=== PATIENT | female | born 1950 | race African-American/Black ===

== ENCOUNTER 2017-10-07 22:13 | Inpatient (IN) | payer OTHER ==
[~2017-10-07] VITALS: Ht 177.8 cm; Wt 120.7 kg
--- NOTE | ~2017-10-07 | EKG ---
[address] [address] ELECTROCARDIOGRAM REPORT Name: KATERYNACLAYTON D Room #: 417-I ADM IN [facility]#: [id number] Admission: 10/08/17 Attend Phys: Sreedhar Orlando MD Discharge: Date of : 54 Report #: [id number] THIS REPORT FOR: //name// [facility] ED Test Date: 2017-10-07 Test Time: 22:27:54 Pat Name: CLAYTON AVENDAÑO Department: Room: Gender: F Environment Artist: VENKAT : 1950 Requested By: David Sosa Order Number: [id number] MD: Quinton Wylie Measurements Intervals [place] Rate: 104 P: 32 [place]: 144 QRS: -14 QRSD: 145 T: -28 QT: 409 QTc: 538 Interpretive Statements Sinus tachycardia Probable left atrial enlargement Right bundle branch block No previous ECG available for comparison Electronically Signed On 10-08-2017 19:49:38 CDT by Quinton Wylie [email or web address] <ELECTRONICALLY SIGNED> By: Quinton Wylie MD 10/08/171948 26 Quinton Wylie MD /AALIYAH
--- NOTE | ~2017-10-07 | HC ---
[facility] [place] [address] CONSULTATION Name: CLAYTON AVENDAÑO Room #: 417-I [facility] IN [facility].#: [id number] Admission: 10/08/17 Attend Phys: Sreedhar Orlando MD Discharge: Date of : 54 Report #: [id number] THIS REPORT FOR: //name// CC: LAIN Orlando DATE OF SERVICE: 10/08/2017 TYPE OF REPORT: General surgery consultation. REFERRING PROVIDER: Sreedhar Orlando M.D. REASON FOR CONSULTATION: Abdominal pain. HISTORY OF PRESENT ILLNESS: The patient is a 67-year-old obese -[place] female visiting from [place] with a known history of a hiatal hernia, who presents with a 5-day history of worsening epigastric and left lower quadrant abdominal pain. The patient has had persistent belching and nausea, but no emesis and does have a past history of a necrotic bowel that required emergent surgical intervention. As such, the patient presented to the Emergency Room for evaluation, whereby she was evaluated with laboratories and a CT scan of the abdomen and pelvis. The patient's labs have returned grossly unremarkable with a normal white blood cell count and normal creatinine and liver function enzymes. Two-view abdominal x-ray shows a nonspecific bowel gas pattern and a CT scan of the abdomen and pelvis shows normal stomach and small bowel with no evidence of inflammatory process, whatsoever. She does have stool and gas throughout the colon, but no evidence of a small-bowel obstruction or ileus. No free fluid. Because of her abdominal pain, however, she has been admitted and I am asked to evaluate from a surgical standpoint. PAST MEDICAL HISTORY: Morbid obesity, prior cholecystectomy. She has hypothyroidism, hypertension and hyperlipidemia. She has undergone appendectomy as well as emergent exploration with a bowel resection for necrotic bowel. She also has a known hiatal hernia. HOME MEDICATIONS: Xanax, Protonix, Synthroid, losartan, hydrochlorothiazide, Lipitor, DuoNeb, nicotine patch and aspirin. ALLERGIES: To IV CONTRAST DYE. FAMILY HISTORY: Reviewed and noncontributory. SOCIAL HISTORY: The patient continues to smoke tobacco, having smoked 5 cigarettes daily until recently; however, she has a history of smoking 1 pack per day for several years. Denies alcohol or illicit drug use. [place] [id number] CONSULTATION Name: CLAYTON AVENDAÑO Room #: 417-I [facility] IN [facility].#: [id number] Admission: 10/08/17 Attend Phys: Sreedhar Orlando MD Discharge: Date of : 54 Report #: [id number] REVIEW OF SYSTEMS: GENERAL: The patient denies nocturnal fevers or chills. HEENT: No change in vision or change in hearing. NECK: No swelling or difficulty swallowing. HEART: No chest pain or palpitations. LUNGS: No cough or shortness of breath. ABDOMEN: Abdominal pain, but no nausea or vomiting. GENITOURINARY: No dysuria or hematuria. ENDOCRINE: No polyuria or polydipsia. HEMATOLOGIC: No history of bleeding or easy bruising. EXTREMITIES: No history weakness or limited range of motion. NEUROLOGICAL: No history of syncope or near-syncopal episodes. SKIN AND INTEGUMENT: No history of abnormal lesions or moles. PSYCHIATRIC: No history of anxiety or depression. PHYSICAL EXAMINATION: VITAL SIGNS: Temperature is 99.1, pulse 85, respirations 22 and blood pressure 142/74. She is 5 feet 10 inches tall and weighs 266 pounds. GENERAL: She is alert, in no acute distress. HEENT: Normocephalic and atraumatic. Pupils equal, round and reactive to light. NECK: Supple, without lymphadenopathy. Trachea midline. HEART: Regular rate and rhythm. LUNGS: Clear to auscultation bilaterally. ABDOMEN: Obese, soft and nondistended. She has mild diffuse tenderness to palpation, although when distracted, does not appear to have abdominal pain to palpation. No guarding, rebound or peritoneal signs or symptoms. GENITOURINARY: Normal external female genitalia. EXTREMITIES: No clubbing, cyanosis or edema. NEUROLOGICAL: Cranial nerves 2 through 12 are grossly intact. PSYCHIATRIC: Normal mood and affect. SKIN AND INTEGUMENT: No abnormal lesions or moles. LABORATORY AND X-RAY DATA: CBC shows white blood cell count of 5.3 thousand; hemoglobin 12.1 and platelets 239,000. Creatinine is 1.0. Liver function enzymes are normal. Chest x-ray is normal. BNP is normal at 189. CT scan of the abdomen and pelvis as well as x-ray of the abdomen showed a nonspecific bowel gas pattern as well as no inflammatory process within the abdomen and no evidence of a small-bowel obstruction or even an ileus. ASSESSMENT AND PLAN: A 67-year-old morbidly obese -M[place]ese female with complaints of diffuse abdominal pain and belching with a known hiatal hernia as well as a history of ischemic bowel requiring emergent exploration for necrotic intestines. At this time, I do not see any overt sinister process ongoing. However, I will obtain a lactic acid level to ensure no ischemic changes are ongoing. I will ask Gastroenterology to evaluate as well for chronic burping [facility] [address] [place] [address] CONSULTATION Name: CLAYTON AVENDAÑO Room #: 417-I [facility] IN ..#: [id number] Admission: 10/08/17 Attend Phys: Sreedhar Orlando MD Discharge: Date of : 54 Report #: [id number] and known hiatal hernia and we will also obtain an upper gastrointestinal swallow with small bowel follow through for full evaluation of her gastrointestinal tract. I sincerely appreciate this consult. I will follow along and leave any further recommendations in the patient's chart as appropriate. <ELECTRONICALLY SIGNED> By: Jessa Cedillo MD, FACS 10/09/17 [id number] [id number] Jessa Cedillo MD, FACS /nt
--- NOTE | ~2017-10-07 | PATH ---
[facility] [address] [place] [address] PATHOLOGY RPT PROCEDURE Name: MITA MCINTYRE Jose Room #: 417-I ADM IN M.R.#: [id number] Admission: 10/08/17 Date of : 54 Discharge: Report #: [id number] Path Case #: [id number] [facility] Accession Number: [id number] . 01 Material submitted: . RANDOM BX OF GASTRIC R/O GASTRITIS . 01 Pre-operative diagnosis: . Abdominal pain . 01 Post-operative diagnosis: . Gastritis . 02 Diagnosis: Gastric mucosa, gastric rule out gastritis, endoscopic biopsy: - Helicobacter pylori-induced moderate chronic active gastritis (properly controlled immunohistochemical stain performed). - Negative for intestinal metaplasia or atrophy. . (IUV:mml; 10/11/2017) QLM/10/11/2017 . 02 Electronically signed: . Susan Nielsen MD, Pathologist NPI- [id number] . 01 Gross description: . Received in formalin labeled "Mita Mcintyre, BX gastric," are 3 segments of ortiz soft tissue measuring 0.9 x 0.7 x 0.2 cm in aggregate dimensions and ranging from 0.3-0.5 cm in maximum dimension. The specimen is submitted entirely in cassette A1. (TSD; 10/10/2017) TOB/TOB . 02 Pathologist provided ICD-10: K29.50, B96.81 . 02 CPT . 500541, [id number] Performed at: [address], [place] [id number] MD Deuce Howell MD Phone: [phone] Performed at: [address] [id number] MD Susan Nielsen MD Phone: [phone]
[2017-10-07 22:22] VITALS: BP 150/94
[2017-10-07 23:14] LABS: ABSOLUTE NEUTROPHILS 2.4 thou/uL (1.4-8.2); BASOPHILS 1.6 % (0.0-2.0); EOSINOPHILS 1.4 % (0.0-3.0); HEMATOCRIT 35.4 % (37.0-47.0); HEMOGLOBIN 12.1 gm/dL (12.0-15.0); LYMPHOCYTES 40.8 % (24.0-44.0); MCH 33.1 pg (26.0-34.0); MCHC 34.1 g/dL (28.0-37.0); MCV 97.1 fL (80.0-100.0); MONOCYTES 10.9 % (1.0-8.0); PLATELET COUNT 239 thou/uL (150-400); POLYS 45.3 % (36.0-66.0); RBC 3.65 mil/uL (4.20-5.00); RDW 15.5 % (10.5-14.5); WBC 5.3 thou/uL (4.0-11.0)
[2017-10-07 23:28] LABS: ANION GAP 13 mmol/L (7-16); BUN 11 mg/dL (7-18); CALCIUM 9.5 mg/dL (8.5-10.1); CHLORIDE 102 mmol/L (98-107); CO2 26 mmol/L (21-32); CREATININE 1.2 mg/dL (0.6-1.0); GLUCOSE 117 mg/dL (74-106); SODIUM 141 mmol/L (136-145)
[2017-10-07 23:32] LABS: POTASSIUM 2.9 mmol/L (3.5-5.1)
[2017-10-07 23:37] LABS: ALBUMIN 3.8 g/dL (3.4-5.0); DIRECT BILIRUBIN 0.1 mg/dL (<0.1-0.3); LIPASE 39 U/L (73-393); SGOT 13 U/L (15-37); SGPT 20 U/L (30-65); TOTAL BILIRUBIN 0.7 mg/dL (<0.1-1.0); TOTAL PROTEIN 7.9 g/dL (6.4-8.2); TROPONIN-I < 0.04 ng/mL (<0.06)
[2017-10-08 02:45] VITALS: BP 120/61
[2017-10-08 03:10] VITALS: BP 131/71
[2017-10-08] MEDS ORDERED: XANAX1 MG PO (03:17)
[2017-10-08] MEDS ORDERED: SYNTHROID50 MCG PO (03:18)
[2017-10-08] MEDS ORDERED: PROTONIX40 M1 PO (03:18)
[2017-10-08] MEDS ORDERED: LOSARTAN-HCTZ1 EAC2 PO (03:19)
[2017-10-08] MEDS ORDERED: LIPITOR10 MG PO (03:20)
[2017-10-08] MEDS ORDERED: NICOTINE TRANSD21 M1 (03:23)
[2017-10-08] MEDS ORDERED: DUONEB 2.5-0.5 M3 ML INH (03:23)
[2017-10-08] MEDS ORDERED: ASPIRIN81 M2 PO (03:24)
[2017-10-08 06:16] LABS: CALCIUM 8.9 mg/dL (8.5-10.1)
[2017-10-08 14:58] VITALS: BP 142/74
[2017-10-08 19:00] VITALS: BP 130/80
[2017-10-09 05:00] VITALS: BP 133/66
[2017-10-09 06:01] LABS: CALCIUM 8.8 mg/dL (8.5-10.1); POTASSIUM 4.2 mmol/L (3.5-5.1)
[2017-10-09 07:03] VITALS: BP 139/77
[2017-10-09 07:22] LABS: ABSOLUTE NEUTROPHILS 2.7 thou/uL (1.4-8.2); BASOPHILS 0.5 % (0.0-2.0); EOSINOPHILS 1.5 % (0.0-3.0); HEMATOCRIT 33.7 % (37.0-47.0); HEMOGLOBIN 11.4 gm/dL (12.0-15.0); LYMPHOCYTES 31.9 % (24.0-44.0); MCH 33.2 pg (26.0-34.0); MCHC 33.9 g/dL (28.0-37.0); MONOCYTES 9.2 % (1.0-8.0); PLATELET COUNT 198 thou/uL (150-400); POLYS 56.9 % (36.0-66.0); RBC 3.44 mil/uL (4.20-5.00); RDW 15.4 % (10.5-14.5); WBC 4.7 thou/uL (4.0-11.0)
[2017-10-09 16:00] VITALS: BP 120/71
[2017-10-09 19:00] VITALS: BP 139/77
[2017-10-10 03:14] VITALS: BP 155/73
[2017-10-10 07:30] VITALS: BP 142/80
[2017-10-10 10:00] VITALS: BP 142/80
[2017-10-10 19:11] VITALS: BP 114/63
[2017-10-11 03:25] VITALS: BP 123/54
[2017-10-11 09:42] VITALS: BP 123/73
[2017-10-11 18:03] VITALS: BP 141/73
[2017-10-11 20:00] VITALS: BP 128/68
[2017-10-12 05:37] VITALS: BP 97/50
[2017-10-12 07:15] LABS: ABSOLUTE NEUTROPHILS 1.6 thou/uL (1.4-8.2); BASOPHILS 0.5 % (0.0-2.0); EOSINOPHILS 3.6 % (0.0-3.0); HEMATOCRIT 31.6 % (37.0-47.0); HEMOGLOBIN 10.8 gm/dL (12.0-15.0); LYMPHOCYTES 48.3 % (24.0-44.0); MCH 33.4 pg (26.0-34.0); MCV 98.3 fL (80.0-100.0); MONOCYTES 6.9 % (1.0-8.0); PLATELET COUNT 167 thou/uL (150-400); POLYS 40.7 % (36.0-66.0); RBC 3.22 mil/uL (4.20-5.00); RDW 15.6 % (10.5-14.5)
[2017-10-12 07:40] LABS: CALCIUM 8.6 mg/dL (8.5-10.1); CREATININE 0.9 mg/dL (0.6-1.0); POTASSIUM 3.6 mmol/L (3.5-5.1)
[2017-10-12 08:00] VITALS: BP 114/61
[2017-10-12 18:44] VITALS: BP 125/62
[2017-10-12 20:00] VITALS: BP 99/78
[2017-10-13 05:57] VITALS: BP 131/63
[2017-10-13 06:07] LABS: ABSOLUTE NEUTROPHILS 1.4 thou/uL (1.4-8.2); BASOPHILS 0.7 % (0.0-2.0); EOSINOPHILS 4.5 % (0.0-3.0); HEMOGLOBIN 10.5 gm/dL (12.0-15.0); LYMPHOCYTES 50.7 % (24.0-44.0); MCH 33.3 pg (26.0-34.0); MCHC 33.8 g/dL (28.0-37.0); MCV 98.7 fL (80.0-100.0); MONOCYTES 8.2 % (1.0-8.0); PLATELET COUNT 176 thou/uL (150-400); POLYS 35.9 % (36.0-66.0); RBC 3.14 mil/uL (4.20-5.00); RDW 15.5 % (10.5-14.5); WBC 3.9 thou/uL (4.0-11.0)
[2017-10-13 06:26] LABS: CALCIUM 8.4 mg/dL (8.5-10.1); CREATININE 0.9 mg/dL (0.6-1.0); POTASSIUM 3.7 mmol/L (3.5-5.1)
[2017-10-13 08:24] VITALS: BP 122/66
[2017-10-13 08:26] VITALS: BP 122/66
[2017-10-13 17:49] VITALS: BP 112/65
[2017-10-13 20:30] VITALS: BP 133/80
[2017-10-14 04:30] VITALS: BP 101/54
[2017-10-14 07:08] LABS: ABSOLUTE NEUTROPHILS 1.3 thou/uL (1.4-8.2); BASOPHILS 0.7 % (0.0-2.0); EOSINOPHILS 4.9 % (0.0-3.0); HEMATOCRIT 31.2 % (37.0-47.0); HEMOGLOBIN 10.4 gm/dL (12.0-15.0); LYMPHOCYTES 52.8 % (24.0-44.0); MCH 32.7 pg (26.0-34.0); MCHC 33.3 g/dL (28.0-37.0); MCV 98.4 fL (80.0-100.0); MONOCYTES 9.2 % (1.0-8.0); PLATELET COUNT 171 thou/uL (150-400); POLYS 32.4 % (36.0-66.0); RBC 3.17 mil/uL (4.20-5.00); RDW 15.4 % (10.5-14.5); WBC 4.1 thou/uL (4.0-11.0)
[2017-10-14 07:20] LABS: CALCIUM 8.5 mg/dL (8.5-10.1); CREATININE 0.8 mg/dL (0.6-1.0); POTASSIUM 4.2 mmol/L (3.5-5.1)
[2017-10-14 08:00] VITALS: BP 131/69
[2017-10-14 09:00] VITALS: BP 131/69
[2017-10-14] MEDS ORDERED: COZAAR100 MG PO (12:58)
[2017-10-14] MEDS ORDERED: DULCOLAX5 MG PO (12:58)
[2017-10-14] MEDS ORDERED: AMOXICILLIN875 MG PO (12:58)
[2017-10-14] MEDS ORDERED: CLARITHROMYCIN250 M2 PO (12:58)
[2017-10-14] MEDS ORDERED: PROTONIX40 M1 PO (12:58)
[2017-10-14] MEDS ORDERED: COLACE100 MG PO (12:58)
[2017-10-14] MEDS ORDERED: SENNA8.6 MG PO (12:58)
[2017-10-14 13:23] VITALS: BP 131/69
[2017-10-14 14:43] VITALS: BP 131/69
== END 2017-10-14 15:10 | disposition home or self-care (01) | DRG 391 ==
LOC: ER 22:13 → 4E 10-08 00:56 → EROBS 10-08 00:56 → 4E 10-08 02:07
PROVIDERS: Hospitalist; Nurse Practitioner; Nurse Practitioner Family
PROC: 05HY33Z Insertion of Infusion Device into Upper Vein, Percutaneous Approach (ICD-10-PCS; principal; 2017-10-08)
PROC: 0DB68ZX Excision of Stomach, Via Natural or Artificial Opening Endoscopic, Diagnostic (ICD-10-PCS; 2017-10-10)
DX: K29.60 Other gastritis without bleeding (principal); N17.0 Acute kidney failure with tubular necrosis; B96.81 Helicobacter pylori [H. pylori] as the cause of diseases classified elsewhere; E87.6 Hypokalemia; E66.01 Morbid (severe) obesity due to excess calories; E03.9 Hypothyroidism, unspecified; I10 Essential (primary) hypertension; E78.5 Hyperlipidemia, unspecified; F17.210 Nicotine dependence, cigarettes, uncomplicated; K44.9 Diaphragmatic hernia without obstruction or gangrene; F41.9 Anxiety disorder, unspecified; R14.2 Eructation; R13.10 Dysphagia, unspecified; K59.00 Constipation, unspecified; Z91.041 Radiographic dye allergy status; Z68.38 Body mass index [BMI] 38.0-38.9, adult; Z90.49 Acquired absence of other specified parts of digestive tract; Z79.899 Other long term (current) drug therapy; Z79.82 Long term (current) use of aspirin
CPT/HCPCS: 10183; 27001; 62110; 62900; 70005